=== PATIENT | male | born 1960 | race Two or more races ===

== ENCOUNTER 2021-11-22 15:48 | Emergency (ER) | payer MEDICARE ==
[2021-11-22] MEDS ORDERED: Aspirin 81 MG Tab.Chew PO ONE (16:36)
--- NOTE | 2021-11-22 16:59 | EDM.PDOC ---
ED HPI GENERAL MEDICAL PROBLEM - General Chief Complaint: Chest Pain Stated Complaint: SOB, CHEST TIGHTNESS Time Seen by Provider: 11/22/21 16:29 Source of Information: Reports: Patient History Limitations: Reports: No Limitations, Other (ED vital signs revealed temp 97.2, pulse of 88, respiratory rate 20, blood pressure 162/71, pulse ox 84% on room air however it is 100% on 2 L per nasal cannula.) - History of Present Illness INITIAL COMMENTS - FREE TEXT/NARRATIVE: 61-year-old male presents the emergency department today with complaints of intermittent chest pressure and shortness of breath that started approximately 2 weeks ago. Patient does have a history of kidney failure and does go to dialysis 3 times per week. Patient has just completed his dialysis run today an d nursing staff advised him that he should be evaluated in the emergency department. Patient was found to have oxygen saturations of 84% on room air at the time of triage. O2 was applied at 2 L per nasal cannula and sats came up to 100%. Patient has had both of his COVID vaccines however has not had his booster. His primary care provider is located at [facility] here in town however he states he has only seen her 1 time and does not recall her name. Chest Pain Score (Numeric/FACES): 9 - Related Data Allergies Allergy/AdvReac Type Severity Reaction Status Date / Time prednisone Allergy Severe Anxiety Verified 11/22/21 16:38 Home Meds: Home Meds Furosemide 40 mg PO ONETIME #1 tablet 11/22/21 [Rx] ED ROS GENERAL - Review of Systems Review Of Systems: Comprehensive ROS is negative, except as noted in HPI. ED EXAM, GENERAL - Physical Exam Exam: See Below Exam Limited By: No Limitations General Appearance: Alert, WD/WN, No Apparent Distress Ears: Normal External Exam, Hearing Grossly Normal Nose: Normal Inspection Throat/Mouth: Normal Inspection, Normal Lips, Normal Voice, No Airway Compromise Head: Atraumatic, Normocephalic Neck: Normal Inspection, Supple Respiratory/Chest: No Respiratory Distress, No Accessory Muscle Use, Chest Non- Tender, Crackles (Left lower lobe) Cardiovascular: Normal Peripheral Pulses, Regular Rate, Rhythm, No Edema, No Murmur GI/Abdominal: Normal Bowel Sounds, Soft, Non-Tender, No Distention (Male) Exam: Deferred Rectal (Males) Exam: Deferred Back Exam: Normal Inspection, Full Range of Motion Extremities: Normal Inspection, Normal Range of Motion, Non-Tender, No Pedal Edema, Normal Capillary Refill Neurological: Alert, Oriented, Normal Cognition Psychiatric: Normal Affect, Normal Mood Skin Exam: Warm, Dry, Intact, Normal Color, No Rash Lymphatic: No Adenopathy #1 Interpretation EKG Date: 11/22/21 Time: 16:28 Rhythm: NSR Rate (Beats/Min): 88 [place]: Normal P-Wave: Present QRS: Normal ST-T: Normal QT: Normal Comparison: NA - No Prior EKG EKG Interpretation Comments: Per Dr. Paredes interpretation: Sinus rhythm at 88 bpm, abnormal R-wave progression, late transition; nonspecifiic T abnormalities, lateral leads; prolonged QT interval. Course - Vital Signs Text/Narrative:: As stated above, patient presents with complaints of intermittent chest pressure and shortness of breath that started approximately 2 weeks ago. Does have a history of chronic renal dialysis. At the time of my exam, the patient is awake alert and oriented and does not appear to be in any distress. He is on 2 L of oxygen per nasal cannula and O2 sats 100%. Denies any complaints of shortness of breath or chest pressure at the time of my exam. Physical exam does reveal some crackles noted to the right lower lobe however remainder of exam is unremarkable. Nursing staff has placed standing orders for cardiac work-up to include labs, EKG and a chest x-ray as well as COVID and influenza testing. Last Recorded V/S: Last Vital Signs Temp 97.2 F 11/22/21 16:28 Pulse 82 11/22/21 20:00 Resp 22 H 11/22/21 20:00 BP 128/61 11/22/21 20:00 Pulse Ox 98 11/22/21 20:00 - Orders/Labs/Meds Orders: Active Orders 24 hr Category Date Time Status Cardiac Monitoring [RC] . DIRECTED Care 11/22/21 16:36 Active Communication Order [RC] ASDIRECTED Care 11/22/21 16:36 Active Communication Order [RC] ASDIRECTED Care 11/22/21 16:36 Active Oxygen Therapy [RC] ASDIRECTED Care 11/22/21 16:36 Active Peripheral IV Care [RC] . DIRECTED Care 11/22/21 16:36 Active CTA Chest W WO Contrast [Ang Chest] [CT] Stat Exams 11/22/21 17:54 Taken Chest 1V Frontal [CR] Stat Exams 11/22/21 16:36 Taken Sodium Chloride 0.9% [Normal Saline] 100 ml Med 11/22/21 18:15 Active IV ASDIRECTED Sodium Chloride 0.9% [Saline Flush] Med 11/22/21 16:36 Active 10 ml FLUSH ASDIRECTED PRN Peripheral IV Insertion Adult [OM.PC] Stat Oth 11/22/21 16:36 Ordered Medication Orders Sodium Chloride (Normal Saline) 100 mls @ 60 minidrops/min IV ASDIRECTED QIAN Last Admin: 11/22/21 18:30 Dose: 60 minidrops/min Documented by: GWEN Sodium Chloride (Sodium Chloride 0.9% 10 Ml Syringe) 10 ml FLUSH ASDIRECTED PRN PRN Reason: Keep Vein Open Last Admin: 11/22/21 18:30 Dose: 10 ml Documented by: Admin: 11/22/21 17:16 Dose: 10 ml Documented by: VANESSA Labs: Laboratory Tests 11/22/21 11/22/21 11/22/21 Range/Units 16:37 16:37 16:37 WBC 6.00 (4.23-9.07) K/mm3 RBC 2.97 L (4.63-6.08) M/mm3 Hgb 9.3 L (13.7-17.5) gm/dl Hct 30.3 L (40.1-51.0) % MCV 102.0 H D (79.0-92.2) fl MCH 31.3 (25.7-32.2) pg MCHC 30.7 L (32.2-35.5) g/dl RDW Std Deviation 64.9 H (35.1-43.9) fL Plt Count 165 (163-337) K/mm3 MPV 8.7 L (9.4-12.3) fl Neut % (Auto) 66.9 (34.0-67.9) % Lymph % (Auto) 19.0 L (21.8-53.1) % Pope % (Auto) 9.3 (5.3-12.2) % Eos % (Auto) 3.0 (0.8-7.0) Baso % (Auto) 1.0 (0.1-1.2) % Neut # (Auto) 4.01 (1.78-5.38) K/mm3 Lymph # (Auto) 1.14 L (1.32-3.57) K/mm3 Pope # (Auto) 0.56 (0.30-0.82) K/mm3 Eos # (Auto) 0.18 (0.04-0.54) K/mm3 Baso # (Auto) 0.06 (0.01-0.08) K/mm3 PT 11.1 (9.7-12.0) SECONDS INR 1.00 D-Dimer, Quantitative 1.22 H (0.19-0.50) mg/L Sodium 143 (136-145) mEq/L Potassium 3.5 D (3.5-5.1) mEq/L Chloride 100 (98-107) mEq/L Carbon Dioxide 36 H D (21-32) mEq/L Anion Gap 10.5 (5-15) BUN 16 D (7-18) mg/dL Creatinine 4.7 H D (0.7-1.3) mg/dL Est Cr Clr Drug Dosing 15.27 mL/min Estimated GFR (MDRD) 13 (>60) mL/min BUN/Creatinine Ratio 3.4 L (14-18) Glucose 85 (70-99) mg/dL Calcium 8.6 (8.5-10.1) mg/dL Magnesium 1.6 L (1.8-2.4) mg/dL Total Bilirubin 1.8 H (0.2-1.0) mg/dL AST 9 L (15-37) U/L ALT 12 L (16-63) U/L Alkaline Phosphatase 99 (46-116) U/L Troponin I < 0.017 (0.00-0.056) ng/mL NT-Pro-B Natriuret Pep (0-125) pg/mL Total Protein 8.4 H (6.4-8.2) g/dl Albumin 3.7 (3.4-5.0) g/dl Globulin 4.7 gm/dL Albumin/Globulin Ratio 0.8 L (1-2) Influenza Type A RNA (NEGATIVE) RSV RNA (INAAT) (NEGATIVE) Influenza Type B RNA (NEGATIVE) SARS-CoV-2 RNA (PADILLA) (NEGATIVE) 11/22/21 11/22/21 Range/Units 16:37 16:37 WBC (4.23-9.07) K/mm3 RBC (4.63-6.08) M/mm3 Hgb (13.7-17.5) gm/dl Hct (40.1-51.0) % MCV (79.0-92.2) fl MCH (25.7-32.2) pg MCHC (32.2-35.5) g/dl RDW Std Deviation (35.1-43.9) fL Plt Count (163-337) K/mm3 MPV (9.4-12.3) fl Neut % (Auto) (34.0-67.9) % Lymph % (Auto) (21.8-53.1) % Pope % (Auto) (5.3-12.2) % Eos % (Auto) (0.8-7.0) Baso % (Auto) (0.1-1.2) % Neut # (Auto) (1.78-5.38) K/mm3 Lymph # (Auto) (1.32-3.57) K/mm3 Pope # (Auto) (0.30-0.82) K/mm3 Eos # (Auto) (0.04-0.54) K/mm3 Baso # (Auto) (0.01-0.08) K/mm3 PT (9.7-12.0) SECONDS INR D-Dimer, Quantitative (0.19-0.50) mg/L Sodium (136-145) mEq/L Potassium (3.5-5.1) mEq/L Chloride (98-107) mEq/L Carbon Dioxide (21-32) mEq/L Anion Gap (5-15) BUN (7-18) mg/dL Creatinine (0.7-1.3) mg/dL Est Cr Clr Drug Dosing mL/min Estimated GFR (MDRD) (>60) mL/min BUN/Creatinine Ratio (14-18) Glucose (70-99) mg/dL Calcium (8.5-10.1) mg/dL Magnesium (1.8-2.4) mg/dL Total Bilirubin (0.2-1.0) mg/dL AST (15-37) U/L ALT (16-63) U/L Alkaline Phosphatase (46-116) U/L Troponin I (0.00-0.056) ng/mL NT-Pro-B Natriuret Pep 4342 H (0-125) pg/mL Total Protein (6.4-8.2) g/dl Albumin (3.4-5.0) g/dl Globulin gm/dL Albumin/Globulin Ratio (1-2) Influenza Type A RNA Negative (NEGATIVE) RSV RNA (INAAT) Negative (NEGATIVE) Influenza Type B RNA Negative (NEGATIVE) SARS-CoV-2 RNA (PADILLA) Negative (NEGATIVE) Meds: Medications Generic Name Dose Route Start Last Admin Trade Name Aurora PRN Reason Stop Dose Admin Sodium Chloride 100 mls @ 60 minidrops/min 11/22/21 18:15 11/22/21 18:30 Normal Saline IV 60 minidrops/min ASDIRECTED QIAN Administration Sodium Chloride 10 ml 11/22/21 16:36 11/22/21 18:30 Sodium Chloride 0.9% 10 Ml Syringe FLUSH 10 ml ASDIRECTED PRN Administration Keep Vein Open Discontinued Medications Generic Name Dose Route Start Last Admin Trade Name Aurora PRN Reason Stop Dose Admin Aspirin 324 mg 11/22/21 16:36 11/22/21 17:15 Aspirin 81 Mg Tab.Chew PO 11/22/21 16:37 324 mg ONETIME ONE Administration Furosemide 40 mg 11/22/21 20:01 11/22/21 20:13 Furosemide 40 Mg/4 Ml Vial IVPUSH 11/22/21 20:02 40 mg NOW ONE Administration Iopamidol 100 ml 11/22/21 18:04 11/22/21 18:30 Iopamidol 755 Mg/Ml 100 Ml Bottle IVPUSH 11/22/21 18:05 100 ml ONETIME ONE Administration Magnesium Oxide 400 mg 11/22/21 17:28 11/22/21 17:54 Magnesium Oxide 400 Mg Tab PO 11/22/21 17:29 400 mg ONETIME ONE Administration Sodium Chloride 10 ml 11/22/21 18:04 11/22/21 18:37 Sodium Chloride 0.9% 10 Ml Sdv FLUSH 11/22/21 18:05 10 ml ONETIME ONE Administration - Re-Assessments/Exams Free Text/Narrative Re-Assessment/Exam: 11/22/21 17:57 Hematology reveals a WBC of 6.00, hemoglobin 9.3, hematocrit 30.3, platelet count 165 Coagulation reveal a pro time of 11.1, INR 1.0, D-dimer 1.22 Chemistry reveals a sodium of 143, potassium 3.5, chloride 100, carbon dioxide 36, anion gap 10.5, BUN 16, creatinine 4.7, glucose 85, magnesium 1.6, total bilirubin 1.8, AST 9, ALT 12, troponin less than 0.017, proBNP 4342 Patient is negative for influenza a and B, COVID and RSV I did consult with Dr. Hodge, cotton header at [facility] in [place], regarding ordering a CTA on the patient due to the fact that his creatinine is 4.6. He states that this is appropriate as patient will be dialyzed on and he does have chronic renal failure. I have ordered a CT of the lungs to rule out PE. 11/22/21 20:19 Radiologist impression, portable view of the chest: Mild cardiomegaly. No evidence for CHF or pneumonia although patient body habitus reduces exam sensitivity and mildly. Equivocal trace left pleural effusion and adjacent atelectasis. No pneumothorax. Radiologist impression CTA of the lungs: 1. Negative for pulmonary emboli. 2. Moderate pericardial effusion. 3. Small bilateral pleural effusions. 4. Mild interstitial infiltrates in both lungs slightly greater on the left. I would favor pulmonary edema rather than a mild pneumonia however COVID- pneumonia could have this appearance. Discussed the case with Dr. Medina and he recommends that I give the patient 40 mg of Lasix IV x1 dose now as after he reviewed the chest x-ray he believes the patient is in congestive heart failure. Patient again does state that he does still avoid so this will be of benefit to him. States that it would be appropriate to send the patient home on oxygen to be followed up with the patient's primary care provider for an echocardiogram. 11/22/21 20:28 Patient's oxygen was turned down to 1 L per nasal cannula and he was 97% however when I went back in the room someone had turned him back up to 2 L per nasal cannula and he was 100%. I discussed the plan with the patient that he would need to be discharged to home on oxygen. [facility] services state that it would likely be a $140 charge. The patient states he cannot afford this and is refusing to go home on oxygen. I will prescribe him another dose of Lasix to be taken tomorrow and recommend dialysis takes more fluid off of the patient on on his next dialysis run. I did discuss that it is strongly encouraged the patient go home on oxygen as if he does not this could put significant strain on his heart and could even result in . Patient is still refusing. He tells me he does have a follow-up appointment scheduled with his primary care provider for November 30, 2021. Departure - Departure Time of Disposition: 20:31 Disposition: Home, Self-Care 01 Condition: Good Clinical Impression: Congestive heart failure (CHF) Qualifiers: Heart failure type: unspecified Heart failure chronicity: unspecified Qualified Code(s): I50.9 - Heart failure, unspecified Prescriptions: Furosemide 40 mg PO ONETIME #1 tablet Instructions: Heart Failure Eating Plan, Heart Failure, Self-Care, [id number] Referrals: PCP,None [Primary Care Provider] - Forms: ED Department Discharge Additional Instructions: You were seen in the emergency department today after a 2-week history of chest pain and increasing shortness of breath. Full cardiac work-up was completed which included labs, chest x-ray, EKG, CT scan of the lungs as well as COVID and influenza testing. Lab studies were essentially unremarkable however your proBNP level which is indicative of fluid overload on your lungs was significantly elevated at 4300. Chest x-ray also revealed a very enlarged heart and fluid on the lungs indicative of congestive heart failure. While you are in the emergency department, you did require oxygen at 2 L per nasal cannula. You did receive a diuretic called Lasix 40 mg 1 dose. This likely will make you urinate quite a bit throughout the night tonight to get rid of extra fluid noted on your lungs. I have sent a prescription over to clinic pharmacy for Lasix 40 mg to be taken once tomorrow. This should also help remove more fluid. You likely will need to have more fluid pulled off of you on your next dialysis run on . Also recommend that you follow-up with your primary care provider in approximately a week at the clinic for reevaluation and an echocardiogram which is an ultrasound of your heart to further evaluate your heart failure. I did recommend that you go home on oxygen as low oxygen levels can put a lot of strain on your heart and could even result in . Sepsis Event Note (ED) - Focused Exam Vital Signs: Vital Signs Temp Pulse Resp BP Pulse Ox 11/22/21 20:00 82 22 H 128/61 98 11/22/21 19:22 86 22 H 147/78 H 98 11/22/21 17:16 79 16 155/80 H 99 11/22/21 16:28 97.2 F 88 20 162/71 H 84 L - My Orders Last 24 Hours: My Active Orders 11/22/21 16:36 Cardiac Monitoring [RC] . DIRECTED Communication Order [RC] ASDIRECTED Communication Order [RC] ASDIRECTED Oxygen Therapy [RC] ASDIRECTED Peripheral IV Care [RC] . DIRECTED Chest 1V Frontal [CR] Stat Sodium Chloride 0.9% [Saline Flush] 10 ml FLUSH ASDIRECTED PRN Peripheral IV Insertion Adult [OM.PC] Stat 11/22/21 17:54 CTA Chest W WO Contrast [Ang Chest] [CT] Stat 11/22/21 18:15 Sodium Chloride 0.9% [Normal Saline] 100 ml IV ASDIRECTED - Assessment/Plan Last 24 Hours: My Active Orders 11/22/21 16:36 Cardiac Monitoring [RC] . DIRECTED Communication Order [RC] ASDIRECTED Communication Order [RC] ASDIRECTED Oxygen Therapy [RC] ASDIRECTED Peripheral IV Care [RC] . DIRECTED Chest 1V Frontal [CR] Stat Sodium Chloride 0.9% [Saline Flush] 10 ml FLUSH ASDIRECTED PRN Peripheral IV Insertion Adult [OM.PC] Stat 11/22/21 17:54 CTA Chest W WO Contrast [Ang Chest] [CT] Stat 11/22/21 18:15 Sodium Chloride 0.9% [Normal Saline] 100 ml IV ASDIRECTED
[2021-11-22] MEDS: Sodium Chloride 0.9% 10 ML Syringe FLUSH PRN ×2 (17:16→18:30)
[2021-11-22] MEDS ORDERED: Magnesium Oxide 400 MG Tab PO ONE (17:28)
[2021-11-22 17:38] LABS: CORONAVIRUS COVID-19 NAA NEGATIVE (NEGATIVE)
[2021-11-22] MEDS ORDERED: Iopamidol 755 Mg/ML 100 ML Bottle IVPUSH ONE (18:04)
[2021-11-22] MEDS ORDERED: Sodium Chloride 0.9% 10 ML SDV FLUSH ONE (18:04)
[2021-11-22] MEDS ORDERED: Sodium Chloride 0.9% 100 ML IV SCH (18:15)
[2021-11-22] MEDS ORDERED: Furosemide 40 MG/4 ML VIAL IVPUSH ONE (20:01)
--- NOTE | 2021-11-22 22:33 | CR ---
EXAM: XR CHEST 1 VIEW LOCATION: [facility] [place] DATE/TIME: 11/22/2021 4:38 PM INDICATION: Chest pain COMPARISON: None. IMPRESSION: Mild cardiomegaly. No evidence for CHF or pneumonia although patient body habitus reduces exam sensitivity mildly. Equivocal trace left pleural effusion and adjacent atelectasis. No pneumothorax. SIGNED BY: Charles Muir MD 11/22/2021 6:15 PM [facility]WIN
--- NOTE | 2021-11-22 22:46 | CT ---
EXAM: CT ANGIO CHEST LOCATION: [facility] DATE/TIME: 11/22/2021 6:16 PM INDICATION: Sob, elevated d-dimer, chest pain COMPARISON: XR 11/22/21 TECHNIQUE: CT chest pulmonary angiogram during arterial phase injection of IV contrast. Multiplanar reformats and MIP reconstructions were performed. Dose reduction techniques were used. CONTRAST: 100 mL [id number] FINDINGS: ANGIOGRAM CHEST: Pulmonary arteries are normal caliber and negative for pulmonary emboli. Thoracic aorta is negative for dissection. No CT evidence of right heart strain. LUNGS AND PLEURA: Small bilateral pleural effusions. Some faint interstitial prominence most prominent in the left lower lung. I would favor pulmonary edema over pneumonia. MEDIASTINUM/AXILLAE: Moderate pericardial effusion. CORONARY ARTERY CALCIFICATION: Moderate. UPPER ABDOMEN: Tiny hypodensity in the liver consistent with a cyst. No follow- up needed. MUSCULOSKELETAL: Normal. IMPRESSION: 1. Negative for pulmonary emboli. 2. Moderate pericardial effusion. 3. Small bilateral pleural effusions. 4. Mild interstitial infiltrates in both lungs slightly greater on the left. I would favor pulmonary edema rather than a mild pneumonia however COVID pneumonia could have this appearance. SIGNED BY: Charles Mcallister MD 11/22/2021 7:43 PM [facility]
== END 2021-11-22 20:59 | disposition home or self-care (01) ==
LOC: SUPCPDRO 15:48 → JD.ED 15:48
DX: I50.9 Heart failure, unspecified (principal); Z88.8 Allergy status to other drugs, medicaments and biological substances; Z20.822 Contact with and (suspected) exposure to COVID-19
CPT/HCPCS: 0241U; 36415; 71045; 71275; 80053; 83735; 83880; 84484; 85025; 85379; 85610; 93005; 96374; 99285; A9270; J1940; Q9967

== ENCOUNTER 2022-04-17 19:43 | Emergency (ER) | payer MEDICARE | END 2022-04-17 21:34 | disposition home or self-care (01) | LOC: JD.ED 19:43 | DX: G56.01 Carpal tunnel syndrome, right upper limb (principal); E78.00 Pure hypercholesterolemia, unspecified; I10 Essential (primary) hypertension; K21.9 Gastro-esophageal reflux disease without esophagitis; Z88.8 Allergy status to other drugs, medicaments and biological substances; Z79.899 Other long term (current) drug therapy | CPT/HCPCS: 72040; 72040-26; 73030-26-RT; 73030-RT; 99283-25 ==

== ENCOUNTER 2023-06-15 15:52 | Emergency (ER) | payer MEDICARE ==
[2023-06-15] MEDS ORDERED: Sodium Chloride 0.9% 10 ML Syringe FLUSH PRN (16:12)
[2023-06-15] MEDS ORDERED: Aluminum Hydroxide/Magnesium Hydroxide/Simethicone Susp 30 ML Cup PO ONE (16:19)
[2023-06-15 16:38] LABS: BASOPHILS ABSOLUTE AUTO 0.05 K/mm3 (0.01-0.08); BASOPHILS PERCENT AUTO 0.8 % (0.1-1.2); EOSINOPHILS ABSOLUTE AUTO 0.06 K/mm3 (0.04-0.54); HEMATOCRIT 31.1 % (40.1-51.0); HEMOGLOBIN 9.9 gm/dl (13.7-17.5); LYMPHOCYTES ABSOLUTE AUTO 0.83 K/mm3 (1.32-3.57); MEAN CORPUSCULAR HEMOGLOBIN 31.1 pg (25.7-32.2); MEAN CORPUSCULAR HGB CONC 31.8 g/dl (32.2-35.5); MEAN CORPUSCULAR VOLUME 97.8 fl (79.0-92.2); MEAN PLATELET VOLUME 9.7 fl (9.4-12.3); MONOCYTES ABSOLUTE AUTO 0.73 K/mm3 (0.30-0.82); MONOCYTES PERCENT AUTO 12.4 % (5.3-12.2); NEUTROPHILS ABSOLUTE AUTO 4.24 K/mm3 (1.78-5.38); NEUTROPHILS PERCENT AUTO 71.8 % (34.0-67.9); PLATELET COUNT,PLT 88 K/mm3 (163-337); RED BLOOD CELL COUNT 3.18 M/mm3 (4.63-6.08); WHITE BLOOD CELL COUNT,WBC 5.91 K/mm3 (4.23-9.07)
[2023-06-15 16:57] LABS: INR 1.23
[2023-06-15 16:58] LABS: PTT,PARTIAL THROMBOPLSTIN TIME 32.5 SECONDS (21.7-31.4)
[2023-06-15 17:06] LABS: SLIDE REVIEW ABNORMAL SMEAR
[2023-06-15 17:08] LABS: A/G RATIO 0.8 (1-2); ALBUMIN 3.5 g/dl (3.4-5.0); ANION GAP 16.8 (5-15); BILIRUBIN TOTAL 3.9 mg/dL (0.2-1.0); BUN/CREATININE RATIO 4.3 (14-18); EST CRCL DRUG DOSING (CG) 10.91 mL/min; MAGNESIUM 1.4 mg/dL (1.8-2.4); POTASSIUM,K 3.8 mEq/L (3.5-5.1); PROTEIN TOTAL,TP 7.8 g/dl (6.4-8.2)
[2023-06-15 17:09] LABS: CALCIUM 10.2 mg/dL (8.5-10.1); CREATININE 6.5 mg/dL (0.7-1.3)
== END 2023-06-15 18:16 | disposition home or self-care (01) ==
LOC: JD.ED 15:52
DX: K21.9 Gastro-esophageal reflux disease without esophagitis (principal); E78.00 Pure hypercholesterolemia, unspecified; I13.0 Hypertensive heart and chronic kidney disease with heart failure and stage 1 through stage 4 chronic kidney disease, or unspecified chronic kidney disease; N18.9 Chronic kidney disease, unspecified; I50.9 Heart failure, unspecified; R09.02 Hypoxemia; Z88.8 Allergy status to other drugs, medicaments and biological substances; Z79.899 Other long term (current) drug therapy
CPT/HCPCS: 36415; 71045; 80053; 82977; 83690; 83735; 83880; 84484; 85025; 85610; 85730; 93005; 99285; A9270; J3490; 93010

== ENCOUNTER 2024-11-07 11:39 | Emergency (ER) | payer MEDICARE ==
[2024-11-07] MEDS ORDERED: Sodium Chloride 0.9% 10 ML Syringe FLUSH PRN (11:52)
[2024-11-07 12:55] LABS: BASOPHILS PERCENT AUTO 0.5 % (0.0-1.0); EOSINOPHILS ABSOLUTE AUTO 0.1 K/mm3 (0.0-0.4); EOSINOPHILS PERCENT AUTO 2.3 % (0.0-6.0); HEMATOCRIT 27.1 % (42.0-52.0); HEMOGLOBIN 9.1 gm/dl (14.0-18.0); IMMATURE GRAN ABSOLUTE AUTO 0.06 K/mm3 (0.00-0.05); LYMPHOCYTES ABSOLUTE AUTO 0.7 K/mm3 (1.0-4.8); LYMPHOCYTES PERCENT AUTO 11.6 % (24.0-44.0); MEAN CORPUSCULAR HEMOGLOBIN 32.9 pg (28.0-32.0); MEAN CORPUSCULAR HGB CONC 33.6 g/dl (32.0-36.0); MEAN CORPUSCULAR VOLUME 97.8 fl (83.0-99.0); MONOCYTES ABSOLUTE AUTO 0.8 K/mm3 (0.0-0.8); MONOCYTES PERCENT AUTO 13.2 % (0.0-8.0); NEUTROPHILS ABSOLUTE AUTO 4.4 K/mm3 (1.8-7.7); NEUTROPHILS PERCENT AUTO 71.4 % (41.0-71.0); PLATELET COUNT,PLT 108 K/mm3 (150-400); RED BLOOD CELL COUNT 2.77 M/mm3 (4.52-5.90); WHITE BLOOD CELL COUNT,WBC 6.14 K/mm3 (3.9-11.3)
[2024-11-07 13:25] LABS: A/G RATIO 0.8 (1-2); ALBUMIN 3.6 g/dl (3.4-5.0); ANION GAP 11.8 (5-15); BUN/CREATININE RATIO 4.5 (14-18); CALCIUM 9.9 mg/dL (8.5-10.1); EST CRCL DRUG DOSING (CG) 11.92 mL/min; MAGNESIUM 1.8 mg/dL (1.8-2.4); POTASSIUM,K 3.8 mEq/L (3.5-5.1); TSH 1.668 uIU/mL (0.358-3.74)
[2024-11-07 13:31] LABS: CREATININE 5.8 mg/dL (0.7-1.3)
[2024-11-07] MEDS: traMADol 50 MG Tab PO ONE (14:40)
== END 2024-11-07 15:10 | disposition home or self-care (01) ==
LOC: JD.ED 11:39
DX: R07.89 Other chest pain (principal); M48.02 Spinal stenosis, cervical region; M54.12 Radiculopathy, cervical region; I12.0 Hypertensive chronic kidney disease with stage 5 chronic kidney disease or end stage renal disease; N18.6 End stage renal disease; E78.00 Pure hypercholesterolemia, unspecified; K21.9 Gastro-esophageal reflux disease without esophagitis; Z88.8 Allergy status to other drugs, medicaments and biological substances; Z79.899 Other long term (current) drug therapy; Z99.2 Dependence on renal dialysis
CPT/HCPCS: 36415; 71045; 73030; 80053; 83735; 83880; 84443; 84484; 85025; 85379; 93005; 99285; A9270

== ENCOUNTER 2025-03-27 11:27 | Emergency (ER) | payer MEDICARE ==
[2025-03-27 12:06] LABS: BASOPHILS ABSOLUTE AUTO 0.1 K/mm3 (0.0-0.2); BASOPHILS PERCENT AUTO 0.9 % (0.0-1.0); EOSINOPHILS ABSOLUTE AUTO 0.1 K/mm3 (0.0-0.4); EOSINOPHILS PERCENT AUTO 1.5 % (0.0-6.0); HEMATOCRIT 33.2 % (42.0-52.0); IMMATURE GRAN ABSOLUTE AUTO 0.05 K/mm3 (0.00-0.05); IMMATURE GRAN PERCENT AUTO 0.9 % (0.0-0.4); LYMPHOCYTES ABSOLUTE AUTO 0.9 K/mm3 (1.0-4.8); LYMPHOCYTES PERCENT AUTO 17.3 % (24.0-44.0); MEAN CORPUSCULAR HEMOGLOBIN 32.2 pg (28.0-32.0); MEAN CORPUSCULAR HGB CONC 33.1 g/dl (32.0-36.0); MEAN CORPUSCULAR VOLUME 97.1 fl (83.0-99.0); MEAN PLATELET VOLUME 9.9 fl (9.4-12.4); MONOCYTES ABSOLUTE AUTO 0.8 K/mm3 (0.0-0.8); MONOCYTES PERCENT AUTO 14.5 % (0.0-8.0); NEUTROPHILS ABSOLUTE AUTO 3.5 K/mm3 (1.8-7.7); NEUTROPHILS PERCENT AUTO 64.9 % (41.0-71.0); PLATELET COUNT,PLT 114 K/mm3 (150-400); RED BLOOD CELL COUNT 3.42 M/mm3 (4.52-5.90); WHITE BLOOD CELL COUNT,WBC 5.38 K/mm3 (3.9-11.3)
[2025-03-27 12:17] LABS: A/G RATIO 0.8 (1-2); ALANINE AMINOTRANSFERASE,ALT 11 U/L (16-63); ALKALINE PHOSPHATASE 84 U/L (46-116); ANION GAP 14.6 (5-15); ASPARTATE AMNIOTRANSFERASE,AST 22 U/L (15-37); BILIRUBIN TOTAL 2.2 mg/dL (0.2-1.0); BLOOD UREA NITROGEN,BUN 22 mg/dL (7-18); BUN/CREATININE RATIO 4.5 (14-18); CALCIUM 9.9 mg/dL (8.5-10.1); CARBON DIOXIDE,CO2 31 mEq/L (21-32); CHLORIDE,CL 97 mEq/L (98-107); CREATININE 4.9 mg/dL (0.7-1.3); ESTIMATED GFR 13 mL/min (>60); GLUCOSE RANDOM 90 mg/dL (70-99); POTASSIUM,K 3.6 mEq/L (3.5-5.1); PROTEIN TOTAL,TP 8.8 g/dl (6.4-8.2); SODIUM,NA 139 mEq/L (136-145); TROPONIN I HIGH SENSITIVITY 14 pg/mL (<=76)
[2025-03-27] MEDS: Acetaminophen/oxyCODONE 325-5 MG Tab PO ONE (12:23)
== END 2025-03-27 13:26 | disposition home or self-care (01) ==
LOC: JD.ED 11:27
DX: M48.02 Spinal stenosis, cervical region (principal); E78.00 Pure hypercholesterolemia, unspecified; M54.12 Radiculopathy, cervical region; I12.9 Hypertensive chronic kidney disease with stage 1 through stage 4 chronic kidney disease, or unspecified chronic kidney disease; N18.6 End stage renal disease; I50.9 Heart failure, unspecified; K21.9 Gastro-esophageal reflux disease without esophagitis; Z88.8 Allergy status to other drugs, medicaments and biological substances; Z79.899 Other long term (current) drug therapy; Z99.2 Dependence on renal dialysis
CPT/HCPCS: 36415; 71046; 80053; 84484; 85025; 93005; 99285; A9270; 93010; 99284